=== PATIENT | male | born 1965 ===

== ENCOUNTER → 2017-10-12 | Day surgery (SDC) | payer OTHER ==
[~2017-10-12] MED LIST: ATORVASTATIN CA20 MG PO; CARVEDILOL25 MG PO; COLACE100 MG PO; DEXAMETHASONE4 MG PO; GABAPENTIN300 MG PO; LAXIS; PERCOCET 5-3251 EACH; PERCOCET 5-3251 EACH PO; TAMS0.4C PO; [UNRECOGNIZED DRUG - OTHER]; [UNRECOGNIZED DRUG - OTHER]; [UNRECOGNIZED DRUG - OTHER]
== END | disposition home or self-care (01) ==
LOC: ADM 10-11 14:30 → CIR.AMB 06:57
DX: D12.8 Benign neoplasm of rectum (principal); K62.89 Other specified diseases of anus and rectum